=== PATIENT | female | born 1940 | race Caucasian/White ===

== ENCOUNTER 2017-01-07 11:37 | Observation (INO) ==
[2017-01-07] MEDS ORDERED: 0.9 % Sodium Chloride 1,000 ML IVC ONE (12:09)
[2017-01-07] MEDS ORDERED: Ampicillin/Sulbactam 3,000 MG in 0.9 % Sodium Chloride Mini Bag 100 ML IVPB ONE (12:15)
--- NOTE | 2017-01-07 12:22 | Emergency Department Note ---
Disposition Clinical Impression: Cellulitis of hand, Tenosynovitis of finger Cat bite of hand Qualifiers: Encounter type: initial encounter Laterality: left Qualified Code(s): S61.452A - Open bite of left hand, initial encounter Disposition: Admitted As Inpatient Condition: Good Animal Bite HPI - General Chief Complaint: ED Animal Bite Stated Complaint: Animal Bite Time Seen by Provider: 01/07/17 12:01 Source: patient, family Limitations: no limitations Nursing Notes Reviewed: Yes Vital Signs Reviewed: Yes - History of Present Illness HPI Narrative: 76-year-old female presents to the emergency department with a red swollen left hand after a cat bite. She was bitten by her house cat on evening and saw her primary doctor who prescribed Augmentin and some pain medication. She took her Augmentin for a full 24 hours but has developed significant swelling and pain in the hand. She states it felt like the cat's tooth went directly into her thumb bone and was stuck. She was bitten on the pinkie side and the thumb side of the hand. She denies fevers or chills but reports significant swelling and pain. No nausea or vomiting. No numbness or weakness. Moving her hand worsens the pain. Pain medication makes it better. - Related Data Home Medications Medication Instructions Recorded Confirmed Albuterol Sulfate [Albuterol 2 puff IH Q4H 06/15/15 01/07/17 Inhaler] Aspirin 325 mg PO QAM 06/15/15 01/07/17 Atorvastatin Calcium [Lipitor] 80 mg PO HS 06/15/15 01/07/17 Baclofen 10 mg PO TID PRN 06/15/15 01/07/17 Budesonide/Formoterol Fumarate 2 puff IH 06/15/15 01/07/17 [Symbicort 80-4.5 Mcg Inhaler] Imipramine HCl [Tofranil] 100 mg PO HS 06/15/15 01/07/17 Metoprolol [Lopressor] 50 mg PO QAM 06/15/15 01/07/17 [place]-3 Fatty Acids/Fish Oil [Fish 1,000 mg PO QPM 06/15/15 01/07/17 Oil 1,000 mg Capsule] Quinapril HCl [Accupril] 10 mg PO QAM 06/15/15 01/07/17 Triamterene/HCTZ 37.5/25mg 1 tab PO QAM 06/15/15 01/07/17 [Dyazide] Acetaminophen w/Cod 300-30 mg 1 tab PO BID PRN 01/07/17 01/07/17 [Tylenol w/Codeine #3] Amoxicillin/Clavulanate [Augmentin] 875 mg PO BID 01/07/17 01/07/17 Donepezil HCl [Aricept] 10 mg PO DAILY 01/07/17 01/07/17 Ferrous Sulfate [Iron] 325 mg PO DAILY 01/07/17 01/07/17 Allergies Allergy/AdvReac Type Severity Reaction Status Date / Time No Known Allergies Allergy Verified 01/07/17 11:42 All systems ED: reviewed and negative except as stated. Constitutional: Denies: fever Respiratory: Denies: cough, dyspnea Gastrointestinal: Denies: abdominal pain, nausea, vomiting Neurological: Denies: weakness, numbness, paresthesias Past Medical History - Past Medical History Medical history: Reports: COPD, diabetes, hypertension, myocardial infarction, TIA Surgical history: Reports: hip replacement, hysterectomy Psychiatric history: Reports: no psych history FLOORING PROFESSIONAL history: Reports: no FLOORING PROFESSIONAL history - Social History Smoking Status: Former smoker Smokeless Tobacco Status: No Alcohol use: Reports: none Drug use: Reports: none Physical Exam General: Appears well, alert and oriented x 3 Cardiovascular: Regular rate and rhythm. S1, S2. No murmurs, rubs or gallops. Respiratory: Breath sounds clear bilaterally. No wheezing, rales or rhonchi. No resp distress Abdomen: Soft, nontender. Eyes: Conjunctiva clear HENT: Moist mucous membranes Neuro: normal handkerchief presser strength bilaterally. normal sensation in hands Musculoskeletal: There appears to be several puncture wounds in the dorsal hypo- thenar eminence. There is a single puncture wound on the dorsal thenar eminence. The entire dorsal aspect of the left hand is erythematous and swollen and this extends into the proximal aspect of the fingers. It does not cross the wrist joint. There is significant tenderness with flexion and extension of the thumb. She has good pulses and normal capillary refill. Skin: Erythema and swelling of the hand and fingers but no streaking up the arm. There is no other rash or signs of infection elsewhere on the body. Psych: Appropriate - General Limitations: no limitations General appearance: alert, in no apparent distress Course Course Narrative: 76-year-old presents with a red swollen hand after being bitten by a cat despite treatment with Augmentin. She did have an elevation in our ESR and CRP. She is afebrile with a normal white blood cell count. An MRI shows cellulitis throughout the hand with a small amount of extensor tenosynovitis. There is no evidence of osteomyelitis or gas in the skin. Patient was started on Unasyn to cover for anaerobes and gram negatives. I discussed with the on-call hospitalist nurse practitioner who excepts for admission, no further orders at this time. I spoke with the on-call orthopedic surgeon, Dr. Arellano who recommends keeping the extremity elevated and he is comfortable with Unasyn. He will see her as consult in the hospital. Vital Signs Temperature 97.9 F 01/07/17 11:42 Pulse Rate 96 01/07/17 11:42 Respiratory Rate 14 01/07/17 11:42 Blood Pressure 154/54 01/07/17 11:42 O2 Sat by Pulse Oximetry 97 01/07/17 11:42 Temperature 97.4 F L 01/07/17 17:24 Pulse Rate 55 01/07/17 17:24 Respiratory Rate 16 01/07/17 17:24 Blood Pressure 116/54 01/07/17 17:24 O2 Sat by Pulse Oximetry 97 01/07/17 17:24 Oxygen Delivery Oxygen Delivery Room Air Animal Bite - Lab Data Result diagrams: 01/07/17 12:29 01/07/17 12:29 Lab Results 01/07/17 01/07/17 01/07/17 Range/Units 12:29 12:29 12:29 WBC 8.6 (4.3-11.1) K/mcL RBC 4.21 (3.82-4.97) M/mcL Hgb 11.5 (11.5-15.4) g/dL Hct 35.0 L (35.3-44.9) % MCV 83.1 (83.0-100.0) fL MCH 27.3 L (28.0-33.3) pg MCHC 32.9 (31.6-35.5) g/dL RDW 15.2 H (11.5-14.5) % Plt Count 116 L (140-400) K/mcL MPV 10.5 (9.4-12.4) fL Immature Gran % 0.3 (0-4) % Seg Neutrophils % 75.0 % Lymphocytes % 15.6 % Monocytes % 7.7 % Eosinophils % 0.9 % Basophils % 0.5 % Neutrophils # 6.4 (1.6-8.9) K/mcL Lymphocytes # 1.3 (0.6-4.6) K/mcL Monocytes # 0.7 (0.0-1.3) K/mcL Eosinophils # 0.1 (0.0-0.6) K/mcL Basophils # 0.0 (0.0-0.2) K/mcL ESR 38 H (0-15) mm/hr Sodium 137 (136-145) mEq/L Potassium 3.7 (3.5-4.5) mEq/L Chloride 102 (98-109) mEq/L Carbon Dioxide 26 (19-29) mEq/L BUN 20 (7-20) mg/dL Creatinine 1.32 H (0.57-1.11) mg/dL Est GFR ( Amer) 47 L (> 60) Est GFR (Non-Af Amer) 39 L (> 60) BUN/Creatinine Ratio 15 (6-26) Glucose 172 H (70-99) mg/dL Calculated Osmolality 291 (280-300) Calcium 9.7 (8.6-10.8) mg/dL C-Reactive Protein 120 H (Less than 5) mg/L Attestation Statement - Attestation Attestation: Patient was seen with resident physician. I reviewed the history, physical, assessment and plan, and agree with the findings. I also personally evaluated this patient and had [id number] time with this patient. 68-year-old female bitten by a cat on night. Was started on Augmentin at that time. Comes in today with worsening swelling and pain of the left hand. No fevers or chills denies other complaints at this time. On examination heart and lungs are unremarkable. Abdomen is soft and nontender. Examination left hand tender diffusely red and erythematous as well as swollen. She has multiple puncture wounds which appear to be healing and not actively bleeding or purulent. Other extremities are unremarkable. Neurologically patient is intact. We will do workup to include blood cultures and start on IV antibiotics. Seems to be a failure of outpatient management. Another concern is for osteomyelitis, the patient states that the Bit down and she felt it go into the bone. She has difficult time extracting the From her hand. We will get an MRI of the hand to ensure that there is no osteo-. Though there was no osteo-did demonstrate extensive cellulitis as well as possible tendinitis. Per request of hospitalist or so was notified and her suggestion was to elevate and continue on IV antibiotic therapy we had started. Patient was admitted for IV antibiotic therapy. Agree with resident physician assessment and plan.
[2017-01-07 12:45] LABS: Basophils % 0.5 %; Eosinophils # 0.1 K/mcL (0.0-0.6); Eosinophils % 0.9 %; Hemoglobin 11.5 g/dL (11.5-15.4); Immature Granulocytes % 0.3 % (0-4); Lymphocytes # 1.3 K/mcL (0.6-4.6); Lymphocytes % 15.6 %; Mean Corpuscular HGB Conc 32.9 g/dL (31.6-35.5); Mean Corpuscular Hemoglobin 27.3 pg (28.0-33.3); Mean Corpuscular Volume 83.1 fL (83.0-100.0); Mean Platelet Volume 10.5 fL (9.4-12.4); Monocytes # 0.7 K/mcL (0.0-1.3); Monocytes % 7.7 %; Neutrophils # 6.4 K/mcL (1.6-8.9); Platelet Count 116 K/mcL (140-400); Red Blood Count 4.21 M/mcL (3.82-4.97); Red Cell Distribution Width 15.2 % (11.5-14.5)
[2017-01-07 12:58] LABS: Calcium 9.7 mg/dL (8.6-10.8); Potassium 3.7 mEq/L (3.5-4.5)
[2017-01-07] MEDS ORDERED: *HR* Morphine 2 MG/ML SYRINGE IVP PRN (16:34)
[2017-01-07] MEDS ORDERED: Naloxone 0.4 MG/ML INJ IVP PRN (16:34)
[2017-01-07] MEDS ORDERED: Baclofen 10 MG TABLET PO PRN (16:38)
[2017-01-07] MEDS: FISH OIL PO SCH (17:27)
[2017-01-07] MEDS: OMEGA PO SCH (17:27)
[2017-01-07] MEDS: FATTY ACIDS PO SCH (17:27)
[2017-01-07] MEDS: 0.9 % Sodium Chloride 1,000 ML IVC SCH (17:57)
--- NOTE | 2017-01-07 18:03 | Internal Med History&Physical ---
<Yvonne Moore M - Last Filed: 01/07/17 21:50> Date of Encounter: 01/07/17 Time of Encounter: 17:49 Assessment and Plan (1) Cellulitis of hand Current visit: Yes Status: Acute MRI shows no osteomyelitis, significant dorsal subcutaneious edema compatible with cellulitis, no drainable fluid collection and mild 2nd extensor copartment tenosynovitis. IV fluids 0.9NS at 100mL/hr IVPB Unasyn and Flagyl Elevate hand Consulted Orthopedic surgery with concern for possible synovial infection. Dr. Fish will evaluate tomorrow. (2) Tenosynovitis of finger Current visit: Yes Status: Acute Concern for synovial infection. Consult to orthopedic surgery for evaluation. Dr. Fish will see patient tomorrow. NPO after midnight in case of procedure tomorrow. (3) COPD (chronic obstructive pulmonary disease) Current visit: Yes Status: Acute Patient denies any increased cough, wheezing or shortness of breath. Continue home doses of symbicort and albuterol Qualifiers: COPD type: unspecified COPD Qualified Code(s): J44.9 - Chronic obstructive pulmonary disease, unspecified (4) Essential hypertension Current visit: No Status: Chronic Continue home dose of metoprolol. (5) DVT prophylaxis Current visit: Yes Status: Acute Ambulate with assistance anti-embolic stockings Heparin 5,000u SQ TID Internal Medicine - H&P: HPI Chief complaint: left hand swelling and pain after cat bite Admitted From: Emergency Dept Plans for Post Hospital Care: Home History of present illness: Ms. Benson is a 76 year old female with hypertension, COPD, coronary artery disease, Parkinson's, type 2 diabetes who presented to the emergency department today because of left hand swelling and pain. Reports that on evening her cat bit her hand and she felt like teeth went down to the bone. She reports that she felt sick all night with nausea and went to her PCP yesterday who put her on oral Augmentin and pain medicine. After 2 days of Augmentin and was even more swollen and more red and painful and patient reported to the emergency department. She does report some sensation of chills and sweats, but denies actual fever. She denies any lightheadedness, dizziness, abdominal pain , diarrhea, chest pain, palpitations. Evaluation in the emergency department included an MRI of her hand which showed no osteomyelitis, significant dorsal subcutaneous edema compatible with cellulitis, no drainable fluid collection, mild second extensor compartment tenosynovitis. Her WBC count was normal at 8.6 , she was afebrile. ESR and CRP were elevated. Her creatinine was elevated at 1.32, but appears to be consistent with her baseline. On exam, patient's left hand has significant erythema and swelling to the dorsum of her hand from her proximal interphalangeal joints to just proximal to her wrist. 3 puncture wounds are observed with scant drainage. She is able to bend fingers, but this causes pain. Lungs are clear to auscultation bilaterally, heart has regular rate and rhythm. Past Med Surg Social Fam HX - Past Medical History Medical history: COPD, diabetes, hypertension, myocardial infarction, TIA, other (parkinsons) Psychiatric history: no psych history - Past Surgical History Surgical History: hip replacement, hysterectomy - Social History Smoking Status: Former smoker Smokeless Tobacco Status: No Alcohol use: none Drug use: none - Family History Mother Living Status: Age at : 55 Cause of : Cancer Hx Family Cardiac Disorders: No Hx Family Respiratory Disorders: Yes (COPD) Hx Family Cancer: Yes (Kidney) Hx Family GI Disorders: Yes (Gerd) Hx Family Genitourinary Disorders: No Hx Family Endocrine Disorder: No Hx Family Musculoskeletal Disorders: No Hx Family Neuromuscular Disorders: No Hx Family Neurologic Disorders: No Hx Family HEENT Disorders: No Hx Family Reproductive Disorders: No Hx Family Psychosocial Disorders: No Hx Family Medical Disorders: No Internal Medicine - H&P: Meds Albuterol Sulfate [Albuterol Inhaler] 2 puff IH Q4H 06/15/15 [History] Aspirin 325 mg PO QAM 06/15/15 [History] Atorvastatin Calcium [Lipitor] 80 mg PO HS 06/15/15 [History] Baclofen 10 mg PO TID PRN 06/15/15 [History] Budesonide/Formoterol Fumarate [Symbicort 80-4.5 Mcg Inhaler] 2 puff IH HS 06/15 [History] Imipramine HCl [Tofranil] 100 mg PO HS 06/15/15 [History] Metoprolol [Lopressor] 50 mg PO QAM 06/15/15 [History] [place]-3 Fatty Acids/Fish Oil [Fish Oil 1,000 mg Capsule] 1,000 mg PO QPM [History] Quinapril HCl [Accupril] 10 mg PO QAM 06/15/15 [History] Triamterene/HCTZ 37.5/25mg [Dyazide] 1 tab PO 209906/15/15 [History] Acetaminophen w/Cod 300-30 mg [Tylenol w/Codeine #3] 1 tab PO BID PRN 01/07/17 [ History] Amoxicillin/Clavulanate [Augmentin] 875 mg PO BID 01/07/17 [History] Donepezil HCl [Aricept] 10 mg PO 209901/07/17 [History] Ferrous Sulfate [Iron] 325 mg PO DAILY 01/07/17 [History] Allergies No Known Allergies Allergy (Verified 01/07/17 11:42) All Systems PM: A 10-system review of systems was performed and is negative for pertinent findings except as documented above in the HPI. - Constitutional Constitutional: chills, no fever(s), no night sweats - EENT Eyes: no change in vision, no discharge, no pain, no photophobia Ears: no ear discharge, no ear pain, no tinnitus Nose, mouth and throat: no dysphagia, no nasal discharge, no neck pain, no sore throat - Cardiovascular Cardiovascular ROS IM: no chest pain, no diaphoresis, no dyspnea, no lightheadedness, no palpitations, no syncope - Respiratory Respiratory: no cough, no dyspnea, no wheezing, no excessive phlegm production - Gastrointestinal Gastrointestinal: nausea, vomiting, no abdominal pain, no diarrhea, no hematemesis, no hematochezia, no melena - Genitourinary Genitourinary: no change in urinary stream, no dysuria, no flank pain, no hematuria - Musculoskeletal Musculoskeletal ROS IM: no numbness, no tingling - Integumentary Integumentary IM: erythema, new lesions, no rash, no unusual bruising Additional comments: erythema and swelling to left hand with 3 puncture wounds. - Neurological Neurological ROS: no confusion, no convulsions, no focal weakness, no numbness, no tingling, no tremor(s) - Hematologic/Lymphatic Hematologic/Lymphatic: no easy bruising - Constitutional Vitals: Temp Pulse Resp BP Pulse Ox 97.4 F L 55 16 116/54 97 01/07/17 17:24 01/07/17 17:24 01/07/17 17:24 01/07/17 17:24 01/07/17 17:24 General appearance: Present: A&O X 3, no acute distress - Head Head exam: Present: atraumatic, normocephalic - Eye Eye exam: Present: PERRL, conjuntiva pink, sclera anicteric Pupils: Present: PERRL - Neck Neck exam general surgery: Present: supple, trachea midline. Absent: lymphadenopathy - Respiratory Respiratory exam: Present: CTAB. Absent: accessory muscle use, rales, rhonchi, wheezes - Cardiovascular Cardiovascular exam: Present: RRR, +S1, +S2. Absent: diastolic murmur, gallop, rubs, systolic murmur - GI/Abdominal GI/Abdominal exam: Present: normal bowel sounds, soft, no peritoneal signs. Absent: distended, tenderness - Extremities Exam Extremities exam: Present: normal capillary refill, warm, radial pulses palpable and symetrical. Absent: calf tenderness, cyanotic, pedal edema - Expanded Upper Extremities Exam Hand wrist exam: Present: erythema (left), swelling (left), tenderness (left) - Neurological Exam Neurological exam: Present: CN II-XII intact, oriented X3, no focal deficits. Absent: facial droop, speech deficit - Skin Skin exam: Present: dry, intact Internal Med - H&P Results - Labs CBC & Chem 7: 01/07/17 12:29 01/07/17 12:29 Labs: All Lab Results (24 Hours) 01/07/17 01/07/17 01/07/17 Range/Units 12:29 12:29 12:29 WBC 8.6 (4.3-11.1) K/mcL RBC 4.21 (3.82-4.97) M/mcL Hgb 11.5 (11.5-15.4) g/dL Hct 35.0 L (35.3-44.9) % MCV 83.1 (83.0-100.0) fL MCH 27.3 L (28.0-33.3) pg MCHC 32.9 (31.6-35.5) g/dL RDW 15.2 H (11.5-14.5) % Plt Count 116 L (140-400) K/mcL MPV 10.5 (9.4-12.4) fL Immature Gran % 0.3 (0-4) % Seg Neutrophils % 75.0 % Lymphocytes % 15.6 % Monocytes % 7.7 % Eosinophils % 0.9 % Basophils % 0.5 % Neutrophils # 6.4 (1.6-8.9) K/mcL Lymphocytes # 1.3 (0.6-4.6) K/mcL Monocytes # 0.7 (0.0-1.3) K/mcL Eosinophils # 0.1 (0.0-0.6) K/mcL Basophils # 0.0 (0.0-0.2) K/mcL ESR 38 H (0-15) mm/hr Sodium 137 (136-145) mEq/L Potassium 3.7 (3.5-4.5) mEq/L Chloride 102 (98-109) mEq/L Carbon Dioxide 26 (19-29) mEq/L BUN 20 (7-20) mg/dL Creatinine 1.32 H (0.57-1.11) mg/dL Est GFR ( Amer) 47 L (> 60) Est GFR (Non-Af Amer) 39 L (> 60) BUN/Creatinine Ratio 15 (6-26) Glucose 172 H (70-99) mg/dL Calculated Osmolality 291 (280-300) Calcium 9.7 (8.6-10.8) mg/dL C-Reactive Protein 120 H (Less than 5) mg/L <Sony Ackerman - Last Filed: 01/07/17 22:23> Date of Encounter: 01/07/17 Internal Medicine - H&P: HPI History of present illness: Ms. Benson is a 76 year old female All Systems PM: A 10-system review of systems was performed and is negative for pertinent findings except as documented above in the HPI. - Constitutional Vitals: Temp Pulse Resp BP Pulse Ox 98.6 F 63 19 135/76 94 L 01/07/17 20:03 01/07/17 20:03 01/07/17 20:14 01/07/17 20:03 01/07/17 20:14 Internal Med - H&P Results - Labs CBC & Chem 7: 01/07/17 12:29 01/07/17 12:29 - Attending Attestation I examined this patient and my medical decision-making was reviewed with the Advanced Practice Nurse. I agree with the documented findings, disposition and treatment plan as described except to the extent set forth below. On exam the patient is in no acute distress. Heart is regular rate and rhythm S1-S2 with no murmurs. Left hand is swollen, tender to palpation. Skin is warm and dorsum puncture [place] but no purulent discharge. Plan: We will treat with broad-spectrum antibiotics to cover gram-negative rods and Pasteurella multocida. Monitor clinically. Orthopedic consult. She is at high risk for morbidity and complications due to severe infection and treatment with IV opiates for pain.
[2017-01-07] MEDS: Budesonide/Formoterol 80/4.5 MDI IH SCH (20:14)
[2017-01-07] MEDS: *HR* HYDROcodone/Acet 5/325 mg TABLET PO PRN (22:45)
[2017-01-07] MEDS: Ampicillin/Sulbactam 3,000 MG in 0.9 % Sodium Chloride Mini Bag 100 ML IVPB SCH (23:45)
[2017-01-07] MEDS: MetroNIDAZOLE 500 MG/100 ML 500 MG/100 ML BAG IVPB SCH (23:48)
[2017-01-08] MEDS: *HR* HYDROcodone/Acet 5/325 mg TABLET PO PRN (02:40)
[2017-01-08 05:06] LABS: Basophils % 0.4 %; Eosinophils # 0.2 K/mcL (0.0-0.6); Eosinophils % 2.4 %; Hematocrit 29.5 % (35.3-44.9); Immature Granulocytes % 0.4 % (0-4); Lymphocytes # 2.1 K/mcL (0.6-4.6); Lymphocytes % 23.3 %; Mean Corpuscular HGB Conc 32.2 g/dL (31.6-35.5); Mean Corpuscular Hemoglobin 26.9 pg (28.0-33.3); Mean Corpuscular Volume 83.6 fL (83.0-100.0); Monocytes # 0.8 K/mcL (0.0-1.3); Neutrophils # 5.7 K/mcL (1.6-8.9); Platelet Count 114 K/mcL (140-400); Red Blood Count 3.53 M/mcL (3.82-4.97); Red Cell Distribution Width 15.1 % (11.5-14.5); Segmented Neutrophils % 64.5 %
[2017-01-08 05:07] LABS: Hemoglobin 9.5 g/dL (11.5-15.4)
[2017-01-08] MEDS: 0.9 % Sodium Chloride 1,000 ML IVC SCH ×2 (05:13→16:41)
[2017-01-08 05:25] LABS: Calcium 8.7 mg/dL (8.6-10.8); Potassium 3.9 mEq/L (3.5-4.5)
[2017-01-08] MEDS: *HR* Heparin 5,000 UNIT/ML VIAL SQ SCH ×3 (06:40→20:26)
[2017-01-08] MEDS: MetroNIDAZOLE 500 MG/100 ML 500 MG/100 ML BAG IVPB SCH ×2 (08:48→16:37)
[2017-01-08] MEDS: Aspirin 325 MG TABLET PO SCH ×2 (08:48→14:37)
[2017-01-08] MEDS: Ampicillin/Sulbactam 3,000 MG in 0.9 % Sodium Chloride Mini Bag 100 ML IVPB SCH ×2 (11:42→17:55)
--- NOTE | 2017-01-08 12:46 | Orthopedic Consult Note ---
Date of Encounter: 01/08/17 Time of Encounter: 11:30 Assessment and Plan (1) Cellulitis of hand Current Visit: Yes Status: Acute Left hand/wrist cellulitis with mild extensor tenosynovitis Slight improvement with elevation and IV antibiotics Continue elevation of antibiotics now. Patient encouraged to do digital range of motion and gentle wrist range of motion exercises. We will repeat labs in the morning. Discussed with the patient and family that, should the cellultis come to a head that we can drain, she will be taken to the operative room for a formal incision and drainage. History of Present Illness Chief complaint: Left hand cat bite HPI: Ms. Benson is a 76 year old [id number] female who sustained multiple cat bites left hand on . She was seen by Dr. Rivero on Monday and started on Augmentin. He states the swelling and erythema of the hand worsened including the pain. She came to the emergency room yesterday afternoon patient was admitted and placed on IV Unasyn. The patient states that the pain and swelling is reduced but not gone. She has had the hand elevated overnight. Patient has a significant past medical history for diet-controlled diabetes. She was recently taken off her of her by mouth medications. Past Med Surg Social Fam HX - Past Medical History Medical history: COPD, diabetes, hypertension, myocardial infarction, TIA, other (parkinsons) Psychiatric history: no psych history - Past Surgical History Surgical History: hip replacement, hysterectomy - Social History Smoking Status: Former smoker Smokeless Tobacco Status: No Alcohol use: none Drug use: none - Family History Mother Living Status: Age at : 55 Cause of : Cancer Hx Family Cardiac Disorders: No Hx Family Respiratory Disorders: Yes (COPD) Hx Family Cancer: Yes (Kidney) Hx Family GI Disorders: Yes (Gerd) Hx Family Genitourinary Disorders: No Hx Family Endocrine Disorder: No Hx Family Musculoskeletal Disorders: No Hx Family Neuromuscular Disorders: No Hx Family Neurologic Disorders: No Hx Family HEENT Disorders: No Hx Family Reproductive Disorders: No Hx Family Psychosocial Disorders: No Hx Family Medical Disorders: No Medications and Allergies Albuterol Sulfate [Albuterol Inhaler] 2 puff IH Q4H 06/15/15 [History] Aspirin 325 mg PO QAM 06/15/15 [History] Atorvastatin Calcium [Lipitor] 80 mg PO HS 06/15/15 [History] Baclofen 10 mg PO TID PRN 06/15/15 [History] Budesonide/Formoterol Fumarate [Symbicort 80-4.5 Mcg Inhaler] 2 puff IH HS 06/15 [History] Imipramine HCl [Tofranil] 100 mg PO HS 06/15/15 [History] Metoprolol [Lopressor] 50 mg PO QAM 06/15/15 [History] [place]-3 Fatty Acids/Fish Oil [Fish Oil 1,000 mg Capsule] 1,000 mg PO QPM [History] Quinapril HCl [Accupril] 10 mg PO QAM 06/15/15 [History] Triamterene/HCTZ 37.5/25mg [Dyazide] 1 tab PO 2100 06/15/15 [History] Acetaminophen w/Cod 300-30 mg [Tylenol w/Codeine #3] 1 tab PO BID PRN 01/07/17 [ History] Amoxicillin/Clavulanate [Augmentin] 875 mg PO BID 01/07/17 [History] Donepezil HCl [Aricept] 10 mg PO 2100 01/07/17 [History] Ferrous Sulfate [Iron] 325 mg PO DAILY 01/07/17 [History] Allergies No Known Allergies Allergy (Verified 01/07/17 11:42) All Systems Reviewed: A 10-system review of systems was performed and is negative for pertinent findings except as documented above in the HPI. Physical Exam - Constitutional Vitals: Temp Pulse Resp BP Pulse Ox 97.8 F 62 14 126/75 94 L 01/08/17 11:02 01/08/17 11:02 01/08/17 11:02 01/08/17 11:02 01/08/17 11:02 - Wrist & Hand left Location of pain: dorsal hand (Positive erythema and swelling) Wrist pain modifiers: with motion (But no pain in joint with gentle range of motion), with activity Wound/scarring location: Multiple puncture wounds and dorsum of hand and wrist with 2 small pustules Tenderness with palpation: dorsal wrist (Mild warmth, no fluctuance) ROM: wrist flexion: abnormal ROM: wrist extension: abnormal ROM: thumb MP joint: abnormal ROM: thumb IP joint: abnormal ROM: index finger MP joint: abnormal ROM: index finger PIP joint: abnormal ROM: index finger DIP joint: abnormal ROM: long finger MP joint: abnormal ROM: long finger PIP joint: abnormal ROM: long finger DIP joint: abnormal ROM: ring finger MP joint: abnormal ROM: ring finger PIP joint: abnormal ROM: ring finger DIP joint: abnormal ROM: small finger MP joint: abnormal ROM: small finger PIP joint: abnormal ROM: small finger DIP joint: abnormal Finger crepitus with motion: No Results - Labs Result Diagrams: 01/08/17 04:32 01/08/17 04:32 Labs: Abnormal lab results RBC 3.53 M/mcL (3.82-4.97) L 01/08/17 04:32 Hgb 9.5 g/dL (11.5-15.4) L D 01/08/17 04:32 Hct 29.5 % (35.3-44.9) L 01/08/17 04:32 MCH 26.9 pg (28.0-33.3) L 01/08/17 04:32 RDW 15.1 % (11.5-14.5) H 01/08/17 04:32 Plt Count 114 K/mcL (140-400) L 01/08/17 04:32 ESR 24 mm/hr (0-15) H 01/08/17 04:32 Creatinine 1.13 mg/dL (0.57-1.11) H 01/08/17 04:32 Est GFR ( Amer) 56 (> 60) L 01/08/17 04:32 Est GFR (Non-Af Amer) 47 (> 60) L 01/08/17 04:32 Glucose 109 mg/dL (70-99) H 01/08/17 04:32 POC Glucose 109 (58-89) H 01/08/17 11:06 C-Reactive Protein 89 mg/L (Less than 5) H 01/08/17 04:32 H & H 01/08/17 Range/Units 04:32 Hgb 9.5 L D (11.5-15.4) g/dL Hct 29.5 L (35.3-44.9) % All other labs normal. - Diagnostic results Elbow MRI: report reviewed (Significant dorsal edema consistent with cellulitis , no abscess, mild second extensor tenosynovitis), image reviewed Consult Discharge Plan - Plan Referrals: Kim Rice MD [Primary Care Provider] -
--- NOTE | 2017-01-08 13:32 | Internal Med Progress Note ---
Date of Encounter: 01/08/17 Time of Encounter: 13:29 - Assessment and plan (1) Cellulitis of hand Current Visit: Yes Status: Acute Assessment and plan: seen by ortho conservative mx for now with IV antibiotics and hand elevation. no fever or leucocyosis MRI shows no osteomyelitis, significant dorsal subcutaneious edema compatible with cellulitis, no drainable fluid collection and mild 2nd extensor copartment tenosynovitis. observe for now, surgical intevention as need be. (2) COPD (chronic obstructive pulmonary disease) Current Visit: Yes Status: Acute Qualifiers: COPD type: unspecified COPD Qualified Code(s): J44.9 - Chronic obstructive pulmonary disease, unspecified (3) Cat bite of hand Current Visit: Yes Status: Acute Qualifiers: Encounter type: initial encounter Laterality: left Qualified Code(s): S61.452A - Open bite of left hand, initial encounter; W55.01XA - Bitten by cat, initial encounter (4) Coronary artery disease Current Visit: No Status: Chronic Qualifiers: Coronary Disease-Associated Artery/Lesion type: [place] artery [place] vs. transplanted heart: [place] heart Associated angina: without angina Qualified Code(s): I25.10 - Atherosclerotic heart disease of [place] coronary artery without angina pectoris (5) Essential hypertension Current Visit: No Status: Chronic - Time Spent With Patient 25 - 35 minutes - Subjective Interval history: seen at the bedside, admitted for cellulitis of left hand from catbite. ortho has been consulted reports that she feels better, the swelling has reduced. - Constitutional Vitals: Temp Pulse Resp BP Pulse Ox 97.8 F 62 14 126/75 94 L 01/08/17 11:02 01/08/17 11:02 01/08/17 11:02 01/08/17 11:02 01/08/17 11:02 General appearance: Present: A&O X 3, no acute distress Exam: neck - supple chest- b/l clear, no added sounds CVs-s1 and s2, no mr'g abd-soft, non tender , bs are present ext- right hand swelling , two bite [place] on the dorsal aspect of the hand, no fluctuation, mild redness and tender, mild decrease in ROM. Internal Medicine: Result - Labs CBC & Chem 7: 01/08/17 04:32 01/08/17 04:32 Labs: Short CBC 01/08/17 Range/Units 04:32 WBC 8.9 (4.3-11.1) K/mcL Hgb 9.5 L D (11.5-15.4) g/dL Hct 29.5 L (35.3-44.9) % Plt Count 114 L (140-400) K/mcL Neutrophils # 5.7 (1.6-8.9) K/mcL BMP 01/08/17 04:32 Sodium 138 Potassium 3.9 Chloride 108 Carbon Dioxide 22 BUN 17 Creatinine 1.13 H Glucose 109 H Calcium 8.7 - VTE Documentation of Mechanical Device: Graduated compression elastic hosiery Consult Discharge Plan - Plan Referrals: Kim Rice MD [Primary Care Provider] -
[2017-01-08] MEDS: FISH OIL PO SCH (17:54)
[2017-01-08] MEDS: FATTY ACIDS PO SCH (17:54)
[2017-01-08] MEDS: OMEGA PO SCH (17:54)
[2017-01-08] MEDS: Budesonide/Formoterol 80/4.5 MDI IH SCH (20:49)
[2017-01-09] MEDS: MetroNIDAZOLE 500 MG/100 ML 500 MG/100 ML BAG IVPB SCH ×4 (00:57→23:33)
[2017-01-09] MEDS: Ampicillin/Sulbactam 3,000 MG in 0.9 % Sodium Chloride Mini Bag 100 ML IVPB SCH ×5 (00:57→23:34)
[2017-01-09 05:29] LABS: Basophils % 0.4 %; Eosinophils # 0.2 K/mcL (0.0-0.6); Eosinophils % 2.7 %; Hematocrit 28.4 % (35.3-44.9); Hemoglobin 9.3 g/dL (11.5-15.4); Immature Granulocytes % 0.2 % (0-4); Lymphocytes # 1.6 K/mcL (0.6-4.6); Lymphocytes % 29.4 %; Mean Corpuscular HGB Conc 32.7 g/dL (31.6-35.5); Mean Corpuscular Hemoglobin 27.6 pg (28.0-33.3); Mean Corpuscular Volume 84.3 fL (83.0-100.0); Mean Platelet Volume 11.4 fL (9.4-12.4); Monocytes # 0.4 K/mcL (0.0-1.3); Monocytes % 6.8 %; Neutrophils # 3.4 K/mcL (1.6-8.9); Platelet Count 106 K/mcL (140-400); Red Blood Count 3.37 M/mcL (3.82-4.97); Segmented Neutrophils % 60.5 %
[2017-01-09] MEDS: *HR* Heparin 5,000 UNIT/ML VIAL SQ SCH ×3 (06:54→23:35)
[2017-01-09] MEDS: 0.9 % Sodium Chloride 1,000 ML IVC SCH ×3 (06:55→22:41)
[2017-01-09] MEDS: Aspirin 325 MG TABLET PO SCH (09:43)
--- NOTE | 2017-01-09 13:05 | Orthopedics Progress Note ---
Date of Encounter: 01/09/17 Time of Encounter: 12:30 - Assessment and Plan (1) Cellulitis of hand Current Visit: Yes Status: Acute Discussed with Dr. Fish. She has improved well with IV abx. Surgery is not necessary at this time as there are no fluctuant areas to be drained. Will continue to monitor. Continue to elevate and ROM of hand. Continue IV abx. Will need to DC home on PO abx per hospitalist. Follow up in 1 week with Carlene Phelan PA-C in [facility] office. Subjective Principal diagnosis: left hand cellulitis Interval history: Patient has had significant improvement in swelling, erythema and ROM of hand overnight. Denies any concerns overnight. There are no areas of fluctuance noted to the dorsal hand. She has been keeping the left arm elevated. States overall she is feeling much better. Pain has improved. Objective Vital signs: Vital Signs Temp Pulse Resp BP Pulse Ox 01/09/17 11:13 16 97 01/09/17 10:31 97.5 F L 54 16 131/65 97 01/09/17 07:52 15 97 01/09/17 05:04 97.8 F 69 15 112/64 97 01/09/17 04:25 17 94 L 01/09/17 00:18 98.3 F 73 17 149/75 96 01/08/17 20:49 16 97 01/08/17 19:44 98.1 F 69 16 170/75 97 01/08/17 15:34 98.3 F 61 15 132/55 97 01/08/17 15:19 16 98 Intake and Output 01/08/17 01/09/17 01/09/17 23:59 07:59 15:59 Intake Total 320 / 320 1200 / 1200 1100 / 1100 Output Total 1000 / 1000 0 / 0 Balance 320 / 320 200 / 200 1100 / 1100 Intake: IV Fluids 200 / 200 1200 / 1200 1100 / 1100 0.9 % Sodium Chloride 1, 1000 / 1000 1000 / 1000 000 ML @ 100 mls/hr IVC . Q10H [facility] Rx#:[id number] Unasyn 3,000 MG In 0.9 % 100 / 100 100 / 100 100 / 100 Sodium Chloride (Mini-Bag +) 100 ML @ 200 mls/hr IVPB Q6H [facility] Rx#: [id number] Flagyl 500 MG/100 ML 500 100 / 100 100 / 100 mg In 100 ml @ 100 mls/hr IVPB Q8HR [facility] Rx#: [id number] Oral 120 / 120 Output: Urine 1000 / 1000 0 / 0 Other: Meal Dinner NPO Percent of Meal Consumed 100% Blood Glucose* 125 113 Incision: healing (Mild erythema surrounding puncture wounds on dorsal wrist with no active drainage, mild swelling, no fluctuance noted to dorsal hand, full ROM of fingers, wrist motion restricted, brisk cap refill, NV intact) - Labs CBC & BMP: 01/09/17 04:56 01/08/17 04:32 Labs: Abnormal lab results RBC 3.37 M/mcL (3.82-4.97) L 01/09/17 04:56 Hgb 9.3 g/dL (11.5-15.4) L 01/09/17 04:56 Hct 28.4 % (35.3-44.9) L 01/09/17 04:56 MCH 27.6 pg (28.0-33.3) L 01/09/17 04:56 RDW 15.0 % (11.5-14.5) H 01/09/17 04:56 Plt Count 106 K/mcL (140-400) L 01/09/17 04:56 ESR 17 mm/hr (0-15) H 01/09/17 04:56 Creatinine 1.13 mg/dL (0.57-1.11) H 01/08/17 04:32 Est GFR ( Amer) 56 (> 60) L 01/08/17 04:32 Est GFR (Non-Af Amer) 47 (> 60) L 01/08/17 04:32 Glucose 109 mg/dL (70-99) H 01/08/17 04:32 POC Glucose 109 (58-89) H 01/08/17 11:06 C-Reactive Protein 60 mg/L (Less than 5) H 01/09/17 04:56 - VTE Documentation of Mechanical Device: Graduated compression elastic hosiery Consult Discharge Plan - Plan Referrals: Kim Rice MD [Primary Care Provider] -
[2017-01-09] MEDS: OMEGA PO SCH (17:05)
[2017-01-09] MEDS: FISH OIL PO SCH (17:05)
[2017-01-09] MEDS: FATTY ACIDS PO SCH (17:05)
--- NOTE | 2017-01-09 17:13 | Internal Med Progress Note ---
Date of Encounter: 01/09/17 Time of Encounter: 17:11 - Assessment and plan (1) Cellulitis of hand Current Visit: Yes Status: Acute Assessment and plan: seen by ortho conservative mx for now with IV antibiotics and hand elevation. no fever or leucocyosis MRI shows no osteomyelitis, significant dorsal subcutaneious edema compatible with cellulitis, no drainable fluid collection and mild 2nd extensor copartment tenosynovitis. no surgical intevention as per ortho, continue IV ab for now. plan to change to augmentin at [facility]. (2) COPD (chronic obstructive pulmonary disease) Current Visit: Yes Status: Acute Assessment and plan: stable Qualifiers: COPD type: unspecified COPD Qualified Code(s): J44.9 - Chronic obstructive pulmonary disease, unspecified (3) Cat bite of hand Current Visit: Yes Status: Acute Assessment and plan: as above Qualifiers: Encounter type: initial encounter Laterality: left Qualified Code(s): S61.452A - Open bite of left hand, initial encounter; W55.01XA - Bitten by cat, initial encounter (4) Coronary artery disease Current Visit: No Status: Chronic Qualifiers: Coronary Disease-Associated Artery/Lesion type: [place] artery [place] vs. transplanted heart: [place] heart Associated angina: without angina Qualified Code(s): I25.10 - Atherosclerotic heart disease of [place] coronary artery without angina pectoris (5) Essential hypertension Current Visit: No Status: Chronic - Time Spent With Patient 25 - 35 minutes - Subjective Interval history: seen at the bedside, admitted for cellulitis of left hand from [facility]. ortho following. reports that she feels better, the swelling has reduced. - Constitutional Vitals: Temp Pulse Resp BP Pulse Ox 98.3 F 62 16 156/73 95 01/09/17 15:09 01/09/17 15:09 01/09/17 15:09 01/09/17 15:09 01/09/17 15:09 General appearance: Present: A&O X 3, no acute distress Exam: neck - supple chest- b/l clear, no added sounds CVs-s1 and s2, no mr'g abd-soft, non tender , bs are present ext- right hand swelling has improved , two bite [place] on the dorsal aspect of the hand, no fluctuation, mild redness and tender, mild decrease in ROM. Internal Medicine: Result - Labs CBC & Chem 7: 01/09/17 04:56 01/08/17 04:32 Labs: Short CBC 01/09/17 Range/Units 04:56 WBC 5.6 (4.3-11.1) K/mcL Hgb 9.3 L (11.5-15.4) g/dL Hct 28.4 L (35.3-44.9) % Plt Count 106 L (140-400) K/mcL Neutrophils # 3.4 (1.6-8.9) K/mcL - VTE Documentation of Mechanical Device: Graduated compression elastic hosiery Consult Discharge Plan - Plan Referrals: Kim Rice MD [Primary Care Provider] -
[2017-01-09] MEDS: Budesonide/Formoterol 80/4.5 MDI IH SCH (21:11)
[2017-01-10] MEDS: Ampicillin/Sulbactam 3,000 MG in 0.9 % Sodium Chloride Mini Bag 100 ML IVPB SCH ×2 (06:28→11:41)
[2017-01-10] MEDS: *HR* Heparin 5,000 UNIT/ML VIAL SQ SCH (06:29)
[2017-01-10] MEDS: Budesonide/Formoterol 80/4.5 MDI IH SCH (08:05)
[2017-01-10] MEDS: MetroNIDAZOLE 500 MG/100 ML 500 MG/100 ML BAG IVPB SCH (08:07)
[2017-01-10] MEDS: Aspirin 325 MG TABLET PO SCH (08:07)
[2017-01-10] MEDS: *HR* HYDROcodone/Acet 5/325 mg TABLET PO PRN (08:08)
[2017-01-10 08:23] LABS: Basophils % 0.6 %; Eosinophils # 0.2 K/mcL (0.0-0.6); Eosinophils % 3.9 %; Hematocrit 30.2 % (35.3-44.9); Immature Granulocytes % 0.2 % (0-4); Lymphocytes # 1.9 K/mcL (0.6-4.6); Lymphocytes % 36.5 %; Mean Corpuscular HGB Conc 33.1 g/dL (31.6-35.5); Mean Corpuscular Hemoglobin 27.5 pg (28.0-33.3); Monocytes # 0.4 K/mcL (0.0-1.3); Monocytes % 7.5 %; Neutrophils # 2.6 K/mcL (1.6-8.9); Platelet Count 112 K/mcL (140-400); Red Blood Count 3.64 M/mcL (3.82-4.97); Segmented Neutrophils % 51.3 %
[2017-01-10 08:38] LABS: BUN/Creatinine Ratio 10 (6-26); Blood Urea Nitrogen 10 mg/dL (7-20); Calcium 8.8 mg/dL (8.6-10.8); Carbon Dioxide 23 mEq/L (19-29); Chloride 108 mEq/L (98-109); Glucose 115 mg/dL (70-99); Osmolality,Calculated 288 (280-300); Potassium 3.9 mEq/L (3.5-4.5); Sodium 139 mEq/L (136-145); eGFR For African Americans > 60 (> 60); eGFR For Non-African Americans 56 (> 60)
--- NOTE | 2017-01-10 08:55 | Orthopedics Progress Note ---
Date of Encounter: 01/10/17 Time of Encounter: 07:40 - Assessment and Plan (1) Cellulitis of hand Current Visit: Yes Status: Acute Patient's cellulitis has responded well to the IV antibiotics and elevation Leave the ulnar-sided pustule open, I would cover the radial sided pustule with a small piece of gauze and a Band-Aid She may be discharged today on by mouth Augmentin We will have her follow up in my office on Monday with Carlene Phelan PA-C Continue elevation and range of motion exercises at home Subjective Principal diagnosis: left hand cellulitis Interval history: The patient is feeling much better she has been elevating the hand overnight Left hand/wrist: Minimal swelling and erythema, no warmth 2 small pustules have erupted There is still a small area of mild swelling and erythema over the dorsal radial aspect of the wrist under one of the erupted pustules - there is no fluctuance in the skin feels indurated. Expressed a tiny droplet of clear fluid. Much improved range of motion of fingers and wrist Objective Vital signs: Vital Signs Temp Pulse Resp BP Pulse Ox 01/10/17 08:07 16 95 01/10/17 07:09 97.9 F 76 16 184/74 95 01/10/17 07:05 95 01/10/17 03:59 98.0 F 69 15 154/68 95 01/09/17 21:11 16 98 01/09/17 20:43 99 01/09/17 19:35 98.2 F 66 14 147/70 99 01/09/17 15:09 98.3 F 62 16 156/73 95 01/09/17 11:13 16 97 01/09/17 10:31 97.5 F L 54 16 131/65 97 Intake and Output 01/09/17 01/10/17 01/10/17 23:59 07:59 15:59 Intake Total 1800 / 1800 300 / 300 700 / 700 Output Total 0 / 0 Balance 1800 / 1800 300 / 300 700 / 700 Intake: IV Fluids 1200 / 1200 300 / 300 700 / 700 0.9 % Sodium Chloride 1, 1000 / 1000 700 / 700 000 ML @ 100 mls/hr IVC . Q10H [facility] Rx#:[id number] Unasyn 3,000 MG In 0.9 % 100 / 100 200 / 200 Sodium Chloride (Mini-Bag +) 100 ML @ 200 mls/hr IVPB Q6H [facility] Rx#: [id number] Flagyl 500 MG/100 ML 500 100 / 100 100 / 100 mg In 100 ml @ 100 mls/hr IVPB Q8HR [facility] Rx#: [id number] Oral 600 / 600 0 / 0 Output: Urine 0 / 0 Other: Meal Dinner Percent of Meal Consumed 5% # Voids 1 1 Weight 76.657 kg Patient Weight 01/10/17 23:59 Weight 76.657 kg Incision: healing - Labs CBC & BMP: 01/10/17 08:15 01/10/17 08:15 Labs: Abnormal lab results RBC 3.64 M/mcL (3.82-4.97) L 01/10/17 08:15 Hgb 10.0 g/dL (11.5-15.4) L 01/10/17 08:15 Hct 30.2 % (35.3-44.9) L 01/10/17 08:15 MCH 27.5 pg (28.0-33.3) L 01/10/17 08:15 RDW 15.0 % (11.5-14.5) H 01/10/17 08:15 Plt Count 112 K/mcL (140-400) L 01/10/17 08:15 ESR 17 mm/hr (0-15) H 01/09/17 04:56 Est GFR (Non-Af Amer) 56 (> 60) L 01/10/17 08:15 Glucose 115 mg/dL (70-99) H 01/10/17 08:15 POC Glucose 113 (58-89) H 01/09/17 11:09 C-Reactive Protein 35 mg/L (Less than 5) H 01/10/17 04:40 - VTE Documentation of Mechanical Device: Graduated compression elastic hosiery Consult Discharge Plan - Plan Referrals: Carlene Phelan, NIRANJAN [Physician Cable Wirer] - 01/13/17 9:00 am Kim Rice MD [Primary Care Provider] -
[2017-01-10 10:45] VITALS: BP 153/73
--- NOTE | 2017-01-10 12:22 | Discharge Summary ---
Date of Encounter: 01/10/17 Time of Encounter: 12:20 - Discharge Diagnosis (1) Cellulitis of hand Priority: Primary Status: Acute (2) COPD (chronic obstructive pulmonary disease) Priority: Secondary Status: Acute Qualifiers: COPD type: unspecified COPD Qualified Code(s): J44.9 - Chronic obstructive pulmonary disease, unspecified (3) Cat bite of hand Priority: Primary Status: Acute Qualifiers: Encounter type: initial encounter Laterality: left Qualified Code(s): S61.452A - Open bite of left hand, initial encounter; W55.01XA - Bitten by cat, initial encounter (4) Coronary artery disease Priority: Secondary Status: Chronic Qualifiers: Coronary Disease-Associated Artery/Lesion type: [place] artery [place] vs. transplanted heart: [place] heart Associated angina: without angina Qualified Code(s): I25.10 - Atherosclerotic heart disease of [place] coronary artery without angina pectoris (5) Essential hypertension Priority: Secondary Status: Chronic - Discharge Medications Prescriptions: Amoxicillin/Clavulanate [Augmentin] 875 mg PO BID #12 tablet HYDROcodone/Acet 5/325 mg [[place] 5-325 mg] 1 tab PO Q6H PRN #20 tab PRN Reason: Pain Home Medications: Albuterol Sulfate [Albuterol Inhaler] 2 puff IH Q4H 06/15/15 [History] Aspirin 325 mg PO QAM 06/15/15 [History] Atorvastatin Calcium [Lipitor] 80 mg PO HS 06/15/15 [History] Baclofen 10 mg PO TID PRN 06/15/15 [History] Budesonide/Formoterol Fumarate [Symbicort 80-4.5 Mcg Inhaler] 2 puff IH BID 01/25 [History] Imipramine HCl [Tofranil] 100 mg PO HS 06/15/15 [History] Metoprolol [Lopressor] 50 mg PO QAM 06/15/15 [History] Export-3 Fatty Acids/Fish Oil [Fish Oil 1,000 mg Capsule] 1,000 mg PO QPM [History] Quinapril HCl [Accupril] 10 mg PO QAM 06/15/15 [History] Triamterene/HCTZ 37.5/25mg [Dyazide] 1 tab PO 2100 06/15/15 [History] Acetaminophen w/Cod 300-30 mg [Tylenol w/Codeine #3] 1 tab PO BID PRN 01/07/17 [ History] Donepezil HCl [Aricept] 10 mg PO 2100 01/07/17 [History] Ferrous Sulfate [Iron] 325 mg PO DAILY 01/07/17 [History] Amoxicillin/Clavulanate [Augmentin] 875 mg PO BID #12 tablet 01/10/17 [Rx] HYDROcodone/Acet 5/325 mg [[place] 5-325 mg] 1 tab PO Q6H PRN #20 tab 01/10/17 [Rx ] Allergies/Adverse Reactions: Allergies No Known Allergies Allergy (Verified 01/07/17 11:42) Date of admission: 01/07/17 16:00 Primary care physician: Kim Rice Consults: 01/07/17 16:40 Consult to Orthopedic Surgery [CONS] Routine Consulting Provider: [facility] Reason for Consult: left hand cellulitis after cat bite with tenosynovitis seen on MRI, concern for synovial infection Call Completed: Yes Discharging clinician: Charla Rojas Anticipated date of discharge: 01/10/17 - Patient Status Disposition: Home, Self-Care Condition: Fair Functional capacity at discharge: independent ambulation Overall status at discharge: patient is progressing back to baseline - Discharge Instructions Follow Up With: Carlene Phelan PAC [Physician Health Care Consultant] - 01/13/17 1:00 pm Kim Rice MD [Primary Care Provider] - - Diet and Activity Activity: resume usual activities as tolerated, other (left hand elevation) Diet: advance to your usual diet Interval History: Ms. Benson is a 76 year old female with hypertension, COPD, coronary artery disease, Parkinson's, type 2 diabetes who presented to the emergency department today because of left hand swelling and pain. Reports that on evening her cat bit her hand . she went to her PCP who put her on oral Augmentin and pain medicine. After 2 days of Augmentin and was even more swollen and more red and painful and patient reported to the emergency department. She does report some sensation of chills and sweats, but denies actual fever. She denies any lightheadedness, dizziness, abdominal pain, diarrhea, chest pain, palpitations. Evaluation in the emergency department included an MRI of her hand which showed no osteomyelitis, significant dorsal subcutaneous edema compatible with cellulitis, no drainable fluid collection, mild second extensor compartment tenosynovitis. Her WBC count was normal at 8.6, she was afebrile. ESR and CRP were elevated. Her creatinine was elevated at 1.32, but appears to be consistent with her baseline. On exam, patient's left hand has significant erythema and swelling to the dorsum of her hand from her proximal interphalangeal joints to just proximal to her wrist. 3 puncture wounds are observed with scant drainage. She is able to bend fingers, but this causes pain. Lungs are clear to auscultation bilaterally, heart has regular rate and rhythm. she was admitted for further management, she was started on emperical IV antibiotics with whicg [place] swelling and the wound improved ortho was consulted and recommended no surgical management at this time since it was clinically improving. she is being dc on oral augmnetin, and willf/u with ortho [employer] SUPERVISOR as OP. Hospital course: Ms. Benson is a 76 year old female Time spent discussing smoking cessation with patient: more than 10 minutes - Time Spent with Patient Total time spent providing and/or coordinating discharge services: Greater than 30 minutes - Constitutional Vitals: Temp Pulse Resp BP Pulse Ox 97.9 F 54 16 153/73 97 01/10/17 10:42 01/10/17 10:42 01/10/17 11:00 01/10/17 10:42 01/10/17 11:00 General appearance: Present: A&O X 3, no acute distress Exam: Head Head exam: Present: atraumatic, normocephalic - Eye Eye exam: Present: PERRL, conjuntiva pink, sclera anicteric Pupils: Present: PERRL - Neck Neck exam general surgery: Present: supple, trachea midline. Absent: lymphadenopathy - Respiratory Respiratory exam: Present: CTAB. Absent: accessory muscle use, rales, rhonchi, wheezes - Cardiovascular Cardiovascular exam: Present: RRR, +S1, +S2. Absent: diastolic murmur, gallop, rubs, systolic murmur - GI/Abdominal GI/Abdominal exam: Present: normal bowel sounds, soft, no peritoneal signs. Absent: distended, tenderness - Extremities Exam Extremities exam: Present: normal capillary refill, warm, radial pulses palpable and symetrical. Absent: calf tenderness, cyanotic, pedal edema - Expanded Upper Extremities Exam Hand wrist exam: Present: erythema, swelling and pain has significantly improved. - Neurological Exam Neurological exam: Present: CN II-XII intact, oriented X3, no focal deficits. Absent: facial droop, speech deficit - Skin Skin exam: Present: dry, intact - VTE Documentation of Mechanical Device: Graduated compression elastic hosiery
== END 2017-01-10 13:50 | disposition home or self-care (01) ==
LOC: 3ANU 11:37 → EMEROO 11:37 → INTOOBSV 16:00 → 3ANU 16:51
PROVIDERS: ADMIT Nurse Practitioner Family; ATTEND Internal Medicine Endocrinology, Diabetes & Metabolism

== ENCOUNTER 2019-08-10 11:45 | Observation (INO) ==
[2019-08-10 12:24] LABS: Basophils % 0.7 %; Eosinophils # 0.2 K/mcL (0.0-0.6); Eosinophils % 3.1 %; Hematocrit 34.1 % (35.3-44.9); Immature Granulocytes % 0.2 % (0-4); Lymphocytes # 1.6 K/mcL (0.6-4.6); Lymphocytes % 28.7 %; Mean Corpuscular HGB Conc 32.3 g/dL (31.6-35.5); Mean Corpuscular Hemoglobin 27.9 pg (28.0-33.3); Mean Corpuscular Volume 86.5 fL (83.0-100.0); Mean Platelet Volume 10.6 fL (9.4-12.4); Monocytes # 0.4 K/mcL (0.0-1.3); Neutrophils # 3.2 K/mcL (1.6-8.9); Platelet Count 131 K/mcL (140-400); Red Blood Count 3.94 M/mcL (3.82-4.97); Red Cell Distribution Width 13.5 % (11.5-14.5); Segmented Neutrophils % 59.3 %; White Blood Count 5.5 K/mcL (4.3-11.1)
[2019-08-10 12:39] LABS: Prothrombin Time 10.9 Seconds (9.4-12.1)
[2019-08-10 12:42] LABS: Activated Partial Thrombo Time 29.5 Seconds (26.0-36.0)
[2019-08-10] MEDS ORDERED: Aspirin 325 MG TABLET PO ONE (12:42)
[2019-08-10 12:45] LABS: BUN/Creatinine Ratio 20 (6-26); Blood Urea Nitrogen 32 mg/dL (8-23); Calcium 9.8 mg/dL (8.6-10.3); Carbon Dioxide 27 mEq/L (23-29); Chloride 104 mEq/L (98-107); Glucose 146 mg/dL (70-105); Osmolality,Calculated 290 (280-300); Potassium 4.1 mEq/L (3.5-5.1); Sodium 135 mEq/L (136-145); eGFR For African Americans 38 (> 60); eGFR For Non-African Americans 31 (> 60)
[2019-08-10 12:46] LABS: Troponin I < 0.03 ng/mL (< 0.04)
[2019-08-10] MEDS ORDERED: Naloxone 0.4 MG/ML INJ IVP PRN (13:08)
[2019-08-10] MEDS: *HR* Heparin 5,000 UNIT/ML VIAL SQ SCH (18:07)
[2019-08-10] MEDS: 0.9 % Sodium Chloride 1,000 ML IVC SCH (18:07)
[2019-08-10] MEDS ORDERED: Morphine Sulfate 2 MG/ML SYRINGE IVP ONE ×2 (20:16→22:40)
[2019-08-11 01:36] LABS: Hematocrit 32.9 % (35.3-44.9); Hemoglobin 10.4 g/dL (11.5-15.4); Mean Corpuscular HGB Conc 31.6 g/dL (31.6-35.5); Mean Corpuscular Volume 88.4 fL (83.0-100.0); Mean Platelet Volume 10.9 fL (9.4-12.4); Platelet Count 140 K/mcL (140-400); Red Blood Count 3.72 M/mcL (3.82-4.97); Red Cell Distribution Width 13.4 % (11.5-14.5); White Blood Count 6.5 K/mcL (4.3-11.1)
[2019-08-11 01:59] LABS: Albumin 4.1 g/dL (3.5-5.7); Bilirubin,Total 0.4 mg/dL (0.3-1.0); Calcium 9.2 mg/dL (8.6-10.3); Globulin 2.1 g/dL (2.4-3.5); Total Protein 6.2 g/dL (6.4-8.9)
[2019-08-11] MEDS: *HR* Heparin 5,000 UNIT/ML VIAL SQ SCH ×2 (05:54→17:40)
[2019-08-11] MEDS: Aspirin 325 MG TABLET PO SCH (08:53)
[2019-08-11] MEDS: 0.9 % Sodium Chloride 1,000 ML IVC SCH (12:20)
[2019-08-11] MEDS ORDERED: hydrOXYzine pamoate 25 MG CAPSULE PO SCH (21:00)
[2019-08-11] MEDS: *HR* OxyCODONE Immed Rel 5 MG TABLET PO PRN (21:32)
[2019-08-12 04:11] LABS: Mean Corpuscular HGB Conc 31.3 g/dL (31.6-35.5); Mean Corpuscular Hemoglobin 27.7 pg (28.0-33.3); Mean Corpuscular Volume 88.6 fL (83.0-100.0); Mean Platelet Volume 10.4 fL (9.4-12.4); Platelet Count 117 K/mcL (140-400); Red Blood Count 3.61 M/mcL (3.82-4.97); Red Cell Distribution Width 13.6 % (11.5-14.5); White Blood Count 5.9 K/mcL (4.3-11.1)
[2019-08-12 04:30] LABS: Albumin 3.8 g/dL (3.5-5.7); Albumin/Globulin Ratio 1.8 (1.1-2.2); Bilirubin,Total 0.4 mg/dL (0.3-1.0); Globulin 2.1 g/dL (2.4-3.5); Potassium 3.8 mEq/L (3.5-5.1); Total Protein 5.9 g/dL (6.4-8.9)
[2019-08-12] MEDS: *HR* Heparin 5,000 UNIT/ML VIAL SQ SCH (06:18)
[2019-08-12] MEDS: *HR* OxyCODONE Immed Rel 5 MG TABLET PO PRN (06:45)
[2019-08-12] MEDS ORDERED: 0.9 % Sodium Chloride 500 ML IVC SCH (08:30)
[2019-08-12] MEDS: Aspirin 325 MG TABLET PO SCH (10:47)
[2019-08-12] MEDS: 0.9 % Sodium Chloride 1,000 ML IVC SCH (10:48)
[2019-08-12 15:19] VITALS: BP 115/67
[2019-08-12 15:35] LABS: Calcium 9.3 mg/dL (8.6-10.3); Potassium 3.9 mEq/L (3.5-5.1)
[2019-08-13] MEDS ORDERED: Aspirin 325 MG TABLET PO SCH (09:00)
== END 2019-08-12 17:20 | disposition home or self-care (01) ==
LOC: EMEROOARM 11:45 → 3BNU 11:45
PROVIDERS: ADMIT Pharmacist; ATTEND Pharmacist